=== PATIENT | male | born 1990 | race Caucasian/White ===

== ENCOUNTER 2018-07-13 01:44 | Inpatient (IN) | payer BC ==
[2018-07-13] VITALS (8 sets, daily range): BP systolic 119–152; BP diastolic 81–100
[~2018-07-13] VITALS: Ht 185.4 cm; Wt 80.3 kg
[~2018-07-13 01:44] MED LIST: ALPRAZOLAM0.25 MG ORAL
--- NOTE | 2018-07-13 01:50 | NUR ---
ED Nurse Note: patient bibdawson RA 857 c/o of nonstop vomiting for 4 days, states that he has hx of Hep a, states a 10/10 pain, states that he has been vomiting non stop every 5 minutes, has taken 12mg of zofran today. pt states that his vomit comes out either what food he ate or a clear color. when asked to provide urine, pt states that he can not. cap refill is less than 3 sec, pt pulse strong. pt is alert and oriented times 4. skin does not tent on assesment.
[2018-07-13] MEDS ORDERED: LORazepam Inj 2mg/ml 1ml IV ONE (02:00)
--- NOTE | 2018-07-13 02:06 | Emergency Room Report ---
History of Present Illness General Chief Complaint: Vomiting Source: Patient Present Illness HPI Is a 28-year-old male with a history of anxiety for which she takes next. He also said he had a history of hepatitis a diagnosed 2 months ago. He presents with chief complaint of intractable vomiting. Onset for last 4 days. Unable to keep anything down. Vomiting is nonbloody nonbilious. No diarrhea. Abdominal cramps of the vomiting. [place] dehydrated. Unable to take his medication because of the vomiting. Allergies: Coded Allergies: No Known Allergies (Unverified , 07/13/18) Patient History Past Medical History: see triage record, old chart reviewed, psych hx Past Surgical History: none Pertinent Family History: none Social History: Denies: smoking Immunizations: other Reviewed Nursing Documentation: PMH: Agreed; PSxH: Agreed Review of Systems Eye: Denies: eye pain, blurred vision ENT: Denies: ear pain, nose congestion, throat swelling Respiratory: Denies: cough, shortness of breath Cardiovascular: Denies: chest pain, palpitations Gastrointestinal: Reports: abdominal pain, nausea, vomiting; Denies: diarrhea Musculoskeletal: Denies: back pain, joint pain Skin: Denies: rash Neurological: Denies: headache, numbness Endocrine: Denies: increased thirst, increased urine Hematologic/Lymphatic: Denies: easy bruising All Other Systems: negative except mentioned in HPI Physical Exam Vital Signs Date Time Temp Pulse Resp B/P (MAP) Pulse Ox O2 Delivery O2 Flow Rate FiO2 07/13/18 01:39 110 124/85 vitals with tachycardia Sp02 EP Interpretation: reviewed, normal General Appearance: well appearing, no apparent distress, alert Head: normocephalic, atraumatic Eyes: bilateral eye PERRL, bilateral eye EOMI ENT: hearing grossly normal, dry mucus membranes Neck: full range of motion, supple, no meningismus Respiratory: chest non-tender, lungs clear, normal breath sounds Cardiovascular #1: regular rate, rhythm, no murmur, tachycardia Gastrointestinal: normal bowel sounds, non tender, no mass, no organomegaly, no bruit, non-distended Musculoskeletal: back normal, gait/station normal, normal range of motion Psychiatric: anxious Skin: warm/dry Medical Decision Making Diagnostic Impression: Primary Impression: Intractable vomiting Qualified Codes: R11.2 - Nausea with vomiting, unspecified Additional Impressions: Intractable abdominal pain Hyperbilirubinemia ARF (acute renal failure) Qualified Codes: N17.9 - Acute kidney failure, unspecified Dehydration Leukocytosis Qualified Codes: D72.829 - Elevated white blood cell count, unspecified ER Course Patient presents with intractable abdominal pain and vomiting. He is pretty dehydrated with hemoconcentration with high hemoglobin. BUN/creatinine also high. White count is elevated. This may be secondary to infection but most likely secondary to acute stress response of vomiting and pain. CT scan showed distal appendix measuring up to 8 mm in caliber. There is no onofre-appendiceal inflammatory changes. This is unlikely appendicitis. I a order Zosyn. Patient still has nausea but no vomiting. Abdominal pain is better controlled. Will admit for further workup. I discussed the case with Dr. Jones for admission and Dr. Vaughan, surgeon, for consult. Lab Results Impression labs with leukocytosis and elevated kidney function CT/MRI/US Diagnostic Results CT/MRI/US Diagnostic Results : Imaging Test Ordered: CT abdomen and pelvis Impression Read by radiologist. Distal appendix measuring up to 8 mm in caliber. No pain in the appendiceal inflammatory changes Last Vital Signs Date Time Temp Pulse Resp B/P (MAP) Pulse Ox O2 Delivery O2 Flow Rate FiO2 07/13/18 01:39 110 124/85 Status: improved Disposition: ADMITTED INPATIENT Condition: Serious Joseph Gan MD Jul 13, 2018 02:06
--- NOTE | 2018-07-13 02:17 | NUR ---
ED Nurse Note: Drawer was accidentally closed when pyxis offered ZOFRAN. medication was not taken out. RN had to override to pull ordered ZOFRAN. only 1 medication was pulled during this event.
[2018-07-13 02:21] LABS: HEMATOCRIT 56.5 % (42.0-52.0); MEAN CORPUSCULAR VOLUME 87 FL (80-99); PLATELET COUNT 335 K/UL (150-450); RED BLOOD COUNT 6.52 M/UL (4.70-6.10); WHITE BLOOD COUNT 20.3 K/UL (4.8-10.8)
[2018-07-13 02:28] LABS: HEMOGLOBIN 19.8 G/DL (14.2-18.0)
[2018-07-13 02:32] LABS: ANION GAP 16 mmol/L (5-15); BLOOD UREA NITROGEN 56 mg/dL (7-18); CARBON DIOXIDE 25 MMOL/L (21-32); CHLORIDE 99 MMOL/L (98-107); POTASSIUM 3.6 MMOL/L (3.5-5.1); SODIUM 140 MMOL/L (136-145)
[2018-07-13 02:43] LABS: ALANINE AMINOTRANSFERASE 25 U/L (12-78); ALBUMIN/GLOBULIN RATIO 1.3 (1.0-2.7); ALKALINE PHOSPHATASE 111 U/L (46-116); ASPARTATE AMINO TRANSFERASE 27 U/L (15-37); BILIRUBIN,TOTAL 2.6 MG/DL (0.2-1.0)
[2018-07-13] MEDS ORDERED: Promethazine HCl 25 MG in NS 55 ML IVPB ONE (02:45)
[2018-07-13 02:50] LABS: BILIRUBIN,DIRECT 0.4 MG/DL (0.0-0.3)
[2018-07-13 03:28] LABS: APPEARANCE,URINE CLEAR; BILIRUBIN, URINE NEGATIVE (NEGATIVE); GLUCOSE, URINE (UA) NEGATIVE (NEGATIVE); KETONES,URINE NEGATIVE (NEGATIVE); LEUKOCYTE ESTERASE ,URINE NEGATIVE (NEGATIVE); NITRITE,URINE NEGATIVE (NEGATIVE); PH,URINE 5 (4.5-8.0); PROTEIN,URINE 2+ (NEGATIVE); UROBILINOGEN,URINE NORMAL MG/DL (0.0-1.0)
[2018-07-13 03:30] LABS: COLOR,URINE YELLOW
--- NOTE | 2018-07-13 04:09 | Diagnostic Imaging Report ---
ADDENDUM - Added by Jonathan Ontiveros M.D. on 07/13/2018 4:09 AM (-08:00) EXAM: CT Abdomen and Pelvis Without Intravenous Contrast CLINICAL HISTORY: ABD PAIN TECHNIQUE: Axial computed tomography images of the abdomen and pelvis without intravenous contrast. CTDI is 11.42 mGy and DLP is 595.21 mGy-cm. One or more of the following dose reduction techniques were used: automated exposure control, adjustment of the mA and/or kV according to patient size, use of iterative reconstruction technique. COMPARISON: No relevant prior studies available. FINDINGS: Distal appendix measures up to about 8 mm in caliber. Lumen of the appendix is opacified. Findings may represent appendicitis in the appropriate clinical context. Portions of distal appendix seen images 54 through 50 series 6. No urinary tract calculi or hydronephrosis. Areas of mild hepatic steatosis. No evidence for acute pancreatitis or bowel obstruction. Hiatal hernia. Lucency with linear configuration at the ligula. Could be artifact from overlying monitor lead. Correlate for any left lung base symptoms. No infiltrate seen at lung bases. IMPRESSION: Distal appendix measures up to about 8 mm in caliber. Lumen of the appendix is opacified. No significant periappendiceal inflammatory changes appreciated. Findings may represent appendicitis in the appropriate clinical context. Clinical correlation needed. Lucency with linear configuration at the ligula. Could be artifact from overlying monitor lead. Correlate for any left lung base symptoms. Incidental findings, as discussed above. [employer] 07/13/18 04:22 Verify Receipt Verified receipt with Joseph Quiroga MD on 07/13 04:22 (-08:00) 07/13/18 04:22 Verify Receipt Verified receipt with Joseph Quiroga MD on 07/13 04:22 (-08:00)
[2018-07-13] MEDS ORDERED: Piperacillin/Tazobactam 3.375 GM in NS 110 ML IVPB ONE (04:30)
--- NOTE | 2018-07-13 04:44 | NUR ---
NURSE NOTES: Patient received FREDERICK Stratton R.N. a28 y.o male with history of anxiety . he also said he had ahistory of hepatis A diagnose 2 mos ago . patient present c/o intractable vomiting . onset for last 4 days . unable to keeP anything down . vomiting is non bloody non bilious. no diarrhea. abdominal cramps of the vomiting . fell dehydrated . unable to take his medication because of the vomiting. patient vss, afebrile . skin is intact .personal belongings with patient . call light within reach bed in low position at all times.will continue to monitor patient Addendum: 07/14/18 at 1836 by JOSE ALBERTO DRAPER LVN Patient received from Toan Wade
--- NOTE | 2018-07-13 04:44 | NUR ---
ED Nurse Note: Report given to Natividad MADERA, in 3E. pt status, vital signs, labs and condition reported to MD and receving RN prior to transfer. pt transfered with all belongings. pt vital signs are stable prior to transfer. no skin issues noted in ER. pt is alert and oriented times 4.
--- NOTE | 2018-07-13 05:27 | NUR ---
NURSE NOTES:Call mansoor Calzada for admission orders . still awaiting to call back. Addendum: 07/14/18 at 1834 by JOSE ALBERTO DRAPER LVN NISHANT Escobar KIRK with new orders . AND Family notified r patient locations Room 312 bed i. Addendum: 07/15/18 at 0219 by JOSE ALBERTO DRAPER FRENCH PROFESSOR HgB 19.8 HCT.56.H AND SOPHIE Charge nurse notified and aware .will continue to monitor patient
[2018-07-13] MEDS ORDERED: D5NS 1,000 ML IV SCH (06:15)
[2018-07-13] MEDS ORDERED: Morphine Sulfate 2mg/ml Inj IVP PRN (06:15)
--- NOTE | 2018-07-13 07:35 | NUR ---
HAND-OFF: Report given to Dinorah Avila
--- NOTE | 2018-07-13 07:35 | NUR ---
NURSE NOTES: WALKING ROUNDS DONE WITH OUTGOING RN. PATIENT AWAKE IN BED. C/O ABD PAIN AND HAS NAUSEA. ANTI-EMETIC GIVEN BY NIGHT CN THIS A.M. DISCUSSED PLAN OF CARE FOR THE DAY. AWAITING MD TO SEE PATIENT. CALL LIGHT WITHIN REACH. WILL CONTINUE TO MONITOR.
[2018-07-13] MEDS: Morphine Sulfate 4mg/ml Inj (IV/IM USE ONLY) IVP PRN ×3 (08:53→17:54)
[2018-07-13] MEDS: ALPRAZolam 0.25mg tab ORAL SCH ×3 (09:00→18:00)
--- NOTE | 2018-07-13 10:45 | History and Physical Report ---
DATE OF ADMISSION: 07/13/2018 CHIEF COMPLAINT: Intractable nausea, vomiting, and diarrhea. HISTORY OF PRESENT ILLNESS: The patient is a 27-year-old male. He has a prior history of hepatitis A, apparently had an episode of severe nausea, vomiting, and diarrhea approximately eight days ago. It improved, but over the last four to five days he has had intractable nausea and vomiting. According to the patient, he vomits nearly every 15 to 30 minutes. He has been unable to tolerate any POs diarrhea. He denies any ill contacts. He has had no fevers or chills. He admits vague abdominal pain. On evaluation in the emergency room, the patient had a CT scan of the abdomen, which was relatively unremarkable. His labs were significant for white count of 20,000 and hemoglobin of 20. Sodium 140, creatinine of 2, and bilirubin of 2.6. The patient has been started on IV hydration and is now admitted for further evaluation and care. PAST MEDICAL HISTORY: As above. PAST SURGICAL HISTORY: None. CURRENT MEDICATIONS: Include Xanax and Remeron. SOCIAL HISTORY: Negative for alcohol. The patient occasional smokes marijuana. No other illicit drugs. FAMILY HISTORY: None. REVIEW OF SYSTEMS: GENERAL: No fever or chills. HEENT: No headaches or visual changes. CARDIOPULMONARY: No chest pain or shortness of breath. GASTROINTESTINAL: Positive nausea and vomiting. Positive diarrhea. Some blood in his vomitus. GENITOURINARY: No urgency or frequency. MUSCULOSKELETAL: No joint pain or swelling. NEUROLOGIC: No evidence of seizures. PHYSICAL EXAMINATION: VITAL SIGNS: Temperature is 98.7 degrees, pulse 86, respirations 20, and blood pressure 150/88. GENERAL: The patient is a well-developed male, in no apparent distress. HEART: Regular rate and rhythm. LUNGS: Clear. ABDOMEN: Soft. Mildly tender throughout. There is no rebound or guarding. EXTREMITIES: No clubbing, cyanosis, or edema. LABORATORY AND IMAGING DATA: UA was clear. White count 20, hemoglobin 20, hematocrit 56, and platelets of 335,000. Sodium 140, potassium 3.6, BUN 36, and creatinine was 2. Total bilirubin 2.6. Lipase is 184. CT scan of the abdomen showed distal appendix measuring 8 mm in caliber, lumen is opacified. No periappendiceal inflammatory changes. Findings may represent appendicitis in the appropriate clinical contacts. ASSESSMENT: This is a pleasant male, admitted with intractable nausea, vomiting, and diarrhea, suspect secondary to gastroenteritis. He has acute renal failure likely due to dehydration and elevated hemoglobin likely due to contraction and dehydration. PLAN: Aggressive fluid resuscitation. Antiemetics. Empiric antibiotic therapy to cover for appendicitis. GI, Infectious Disease, and Surgery consultations to be obtained. We will review CT scan results. Vinicius Jones M.D. DR: FARIHA JOB#: [id number] CC:
--- NOTE | 2018-07-13 11:30 | Consultation ---
DATE OF CONSULTATION: 07/13/2018 INFECTIOUS DISEASE CONSULTATION CONSULTING PHYSICIAN: Rosalino Garcia M.D. REFERRING PHYSICIAN: Vinicius Jones M.D. REASON FOR CONSULTATION: Gastroenteritis. HISTORY OF PRESENT ILLNESS: This is a 28-year-old gentleman with history of anxiety and hepatitis A two months ago, who came in with vomiting since the last four days and was unable to keep anything down. He also has diarrhea along with abdominal cramps. He also complains of fever and chills. He does not recall eating anything bad, but he went on vacation to [place] [employer]. An Infectious Disease consultation has been obtained for antibiotics. PAST MEDICAL HISTORY: 1. History of hepatitis A, diagnosed two months ago. 2. History of anxiety. SOCIAL HISTORY: He does not smoke, drink, or use drugs. FAMILY HISTORY: Noncontributory. REVIEW OF SYSTEMS: RESPIRATORY: He had fever and chills. He has a cough. He has shortness of breath. No chest pain. CARDIAC: No chest pain. No palpitations. No dizziness. No syncope. GASTROINTESTINAL: He does have nausea and vomiting. He complains of abdominal pain. He has diarrhea. MEDICATIONS: As an inpatient, he is on Zosyn, Xanax, Zofran, and morphine. ALLERGIES: No known drug allergies. PHYSICAL EXAMINATION: VITAL SIGNS: Temperature 98.1, T-max of 98.7, pulse 86, respiratory rate 20, and blood pressure 151/99. O2 saturation of 100%. HEENT: Pupils are equally reactive to light and accommodation. Mouth appears clean without thrush. NECK: Supple. No adenopathy. No JVD. CARDIOVASCULAR: Regular rate and rhythm. No murmurs. LUNGS: Clear to auscultation bilaterally. No crackles. No wheezes. ABDOMEN: Soft and nontender. No organomegaly. EXTREMITIES: No cyanosis. No clubbing. No edema. LABORATORY AND DIAGNOSTIC DATA: White count of 20.3, hemoglobin 19.8, hematocrit 56.5, MCV 87, and platelet count 335,000. Sodium 140, potassium 3.6, chloride 99, bicarb 25, BUN 56, and creatinine 2. Glucose 148. Calcium 10. Total bilirubin 2.6, direct bilirubin 0.4. AST 27, ALT 25, and alkaline phosphatase 111. Total protein 8.9, albumin 5. Lipase of 184. UA showing [address] abdomen and pelvis showing distal appendix about 8 mm in caliber opacified. No significant periappendiceal inflammatory changes. Findings may represent appendicitis. ASSESSMENT: This is a 28-year-old gentleman with history of anxiety and hepatitis A recently, who comes in with: 1. Nausea, vomiting, abdominal pain and diarrhea, would be concerned regarding appendicitis as a possibility. 2. Leukocytosis. 3. Renal failure. 4. We would also like to rule out gastroenteritis as a possibility. PLAN: 1. Continue Zosyn. 2. We will order stool cultures and stool for C. difficile colitis. 3. We would suggest a surgical evaluation. 4. We will follow up the patient clinically. I would like to thank Dr. Jones for this consultation. Rosalino Garcia M.D. DR: JENNY JOB#: [id number] CC:
--- NOTE | 2018-07-13 13:08 | Consultation ---
History of Present Illness General Date patient seen: Jul 13, 2018 Chief Complaint: Vomiting Present Illness HPI 28 year old male with history of anxiety and prior left open inguinal hernia repair with mesh presented with 4 days of abdominal discomfort, nausea, emesis. [place] and for the past 4 days has been feeling unwell. generalized mid and epigastric abdominal pain that is 5/10 cramping. intractable nausea and emesis. presented to ED severely dehydrated. CT noted. surgery called to evaluate. patient seen, chart reviewed, patient examined. Allergies: Coded Allergies: No Known Allergies (Unverified , 07/13/18) Medication History Scheduled Alprazolam* (Xanax*), 0.25 MG ORAL TID, (Reported) Patient History History Provided By: Patient, Medical Record, PMD Healthcare decision maker Resuscitation status Full Code Advanced Directive on File Past Medical/Surgical History Past Medical/Surgical History: (1) Acute renal failure (2) ARF (acute renal failure) (3) Hyperbilirubinemia (4) Intractable abdominal pain (5) Dehydration (6) Leukocytosis (7) Intractable vomiting Review of Systems All Other Systems: negative except mentioned in HPI Physical Exam General Appearance: mild distress Lines, tubes and drains: peripheral HEENT: atraumatic Neck: normal inspection Respiratory/Chest: normal breath sounds, no respiratory distress, no accessory muscle use Cardiovascular/Chest: normal peripheral pulses, normal rate, regular rhythm Abdomen: soft, distended, tender - no rebound or guarding. discomfort with palpation of epigastric region Extremities: normal inspection Skin Exam: normal pigmentation Neurologic: alert, oriented x 3 Last 24 Hour Vital Signs Date Time Temp Pulse Resp B/P (MAP) Pulse Ox O2 Delivery O2 Flow Rate FiO2 07/13/18 11:56 98.2 71 20 150/96 (114) 99 07/13/18 09:23 98.1 07/13/18 09:00 Room Air 07/13/18 08:00 98.1 86 20 151/99 (116) 100 07/13/18 05:12 Room Air 07/13/18 04:44 98.7 86 20 150/88 (108) 97 07/13/18 04:44 98.7 86 20 150/88 (108) 97 07/13/18 04:42 98.2 79 15 122/81 99 Room Air 99 07/13/18 04:41 98.2 79 15 122/81 99 Room Air 07/13/18 03:39 98.2 81 15 119/83 99 Room Air 07/13/18 01:50 98.2 100 15 124/85 99 Room Air 07/13/18 01:50 100 16 Room Air 99 07/13/18 01:39 110 124/85 Intake and Output 07/12/18 07/13/18 18:59 06:59 Intake Total 2000 ml Balance 2000 ml Intake IV Total 2000 ml # Voids 1 Laboratory Tests Test 07/13/18 02:06 07/13/18 03:20 White Blood Count 20.3 K/UL (4.8-10.8) H Red Blood Count 6.52 M/UL (4.70-6.10) H Hemoglobin 19.8 G/DL (14.2-18.0) *H Hematocrit 56.5 % (42.0-52.0) H Mean Corpuscular Volume 87 FL (80-99) Mean Corpuscular Hemoglobin 30.3 PG (27.0-31.0) Mean Corpuscular Hemoglobin Concent 35.0 G/DL (32.0-36.0) Red Cell Distribution Width 11.0 % (11.6-14.8) L Platelet Count 335 K/UL (150-450) Mean Platelet Volume 6.5 FL (6.5-10.1) Neutrophils (%) (Auto) % (45.0-75.0) Lymphocytes (%) (Auto) % (20.0-45.0) Monocytes (%) (Auto) % (1.0-10.0) Eosinophils (%) (Auto) % (0.0-3.0) Basophils (%) (Auto) % (0.0-2.0) Sodium Level 140 MMOL/L (136-145) Potassium Level 3.6 MMOL/L (3.5-5.1) Chloride Level 99 MMOL/L (98-107) Carbon Dioxide Level 25 MMOL/L (21-32) Anion Gap 16 mmol/L (5-15) H Blood Urea Nitrogen 56 mg/dL (7-18) H Creatinine 2.0 MG/DL (0.55-1.30) H Estimat Glomerular Filtration Rate 39.7 mL/min (>60) Glucose Level 148 MG/DL (74-106) H Calcium Level 10.0 MG/DL (8.5-10.1) Total Bilirubin 2.6 MG/DL (0.2-1.0) H Direct Bilirubin 0.4 MG/DL (0.0-0.3) H Aspartate Amino Transf (AST/SGOT) 27 U/L (15-37) Alanine Aminotransferase (ALT/SGPT) 25 U/L (12-78) Alkaline Phosphatase 111 U/L (46-116) Total Protein 8.9 G/DL (6.4-8.2) H Albumin 5.0 G/DL (3.4-5.0) Globulin 3.9 g/dL Albumin/Globulin Ratio 1.3 (1.0-2.7) Lipase 184 U/L (73-393) Urine Color Yellow Urine Appearance Clear Urine pH 5 (4.5-8.0) Urine Specific [place] 1.020 (1.005-1.035) Urine Protein 2+ (NEGATIVE) H Urine Glucose (UA) Negative (NEGATIVE) Urine Ketones Negative (NEGATIVE) Urine Blood 1+ (NEGATIVE) H Urine Nitrite Negative (NEGATIVE) Urine Bilirubin Negative (NEGATIVE) Urine Urobilinogen Normal MG/DL (0.0-1.0) Urine Leukocyte Esterase Negative (NEGATIVE) Urine RBC 0-2 /HPF (0 - 0) H Urine WBC 0 /HPF (0 - 0) Urine Squamous Epithelial Cells None /LPF (NONE/OCC) Urine Bacteria None /HPF (NONE) Urine Opiates Screen Negative (NEGATIVE) Urine Barbiturates Screen Negative (NEGATIVE) Phencyclidine (PCP) Screen Negative (NEGATIVE) Urine Amphetamines Screen Negative (NEGATIVE) Urine Benzodiazepines Screen Positive (NEGATIVE) H Urine Cocaine Screen Negative (NEGATIVE) Urine Marijuana (THC) Screen Positive (NEGATIVE) H Height (Feet): 6 Height (Inches): 1.00 Weight (Pounds): 180 Medications Current Medications Medications (Trade) Dose Ordered Sig/Malika Route PRN Reason Start Time Stop Time Status Last Admin Dose Admin Alprazolam (Xanax) 0.25 mg THREE TIMES A DAY ORAL 07/13/18 09:00 07/20/18 08:59 07/13/18 09:16 Dextrose/Sodium Chloride 1,000 ml @ 100 mls/hr Q10H IV 07/13/18 06:15 08/12/18 06:14 07/13/18 06:55 Morphine Sulfate (Morphine Sulfate) 1 mg Q4H PRN IVP For Pain 07/13/18 08:45 07/20/18 08:44 07/13/18 08:53 Ondansetron HCl (Zofran) 4 mg Q4H PRN IVP Nausea & Vomiting 07/13/18 08:55 08/12/18 08:54 07/13/18 11:03 Piperacillin Sod/ Tazobactam Sod 3.375 gm/Sodium Chloride 110 ml @ 27.5 mls/hr EVERY 8 HOURS IVPB 07/13/18 14:00 07/18/18 13:59 Assessment/Plan Problem List: (1) Intractable abdominal pain ICD Codes: R10.9 - Unspecified abdominal pain SNOMED: 49421496, [id number] (2) Intractable vomiting Assessment & Plan: very dehydrated constant emesis CT noted. exam as above unlikely appendicitis etiology unknown -npo -iv fluids -iv abx -am labs if does not improve with hydration may warrant diagnostic laparoscopy will follow with recs thank you ICD Codes: R11.10 - Vomiting, unspecified SNOMED: [id number] Qualifiers: Qualified Codes: R11.2 - Nausea with vomiting, unspecified Castro Vaughan Jul 13, 2018 13:08
[2018-07-13] MEDS ORDERED: Sodium Chloride 500ML 500 ML IV ONE (13:45)
[2018-07-13] MEDS ORDERED: Promethazine HCl 50 MG in NS 110 ML IVPB SCH (14:00)
[2018-07-13] MEDS: D5NS 1,000 ML IV SCH ×2 (14:12→18:59)
[2018-07-13] MEDS: Piperacillin/Tazobactam 3.375 GM in NS 110 ML IVPB SCH ×2 (14:17→22:02)
[2018-07-13] MEDS ORDERED: Metoclopramide 10mg/2ml Inj IVP SCH (14:30)
[2018-07-13] MEDS: HYDROmorphone 1mg/ml Carpuject IVP PRN ×3 (14:37→22:58)
[2018-07-13] MEDS ORDERED: Tubing IV Secondary IV ONE (17:48)
[2018-07-13] MEDS: Metoclopramide 10mg/2ml Inj IVP SCH (17:53)
--- NOTE | 2018-07-13 21:30 | NUR ---
NURSE NOTES: PATIENT FELL ASLEEP A FEW TIMES THROUGHOUT THE DAY BUT AWAKENED WITH BURNING ABDOMINAL PAIN. STILL REQUIRING PAIN MEDS AND ANTIEMTICS AT PRN SCHEDULED TIMES. VSS. CALL LIGHT WITHIN REACH.
[2018-07-13] MEDS: LORazepam Inj 2mg/ml 1ml IV PRN (22:02)
[2018-07-14] VITALS: BP 158/97
[2018-07-14] MEDS: Metoclopramide 10mg/2ml Inj IVP SCH ×5 (00:04→23:38)
[2018-07-14] MEDS: LORazepam Inj 2mg/ml 1ml IV PRN ×6 (02:15→23:50)
[2018-07-14] MEDS: HYDROmorphone 1mg/ml Carpuject IVP PRN (02:59)
--- NOTE | 2018-07-14 03:49 | NUR ---
HAND-OFF: Report given to LORI RAMIREZ RN..
[2018-07-14 04:10] VITALS: BP 157/91
--- NOTE | 2018-07-14 04:44 | NUR ---
NURSE NOTES: Patient care of nausea no vomiting noted or stated, medicated per MD orders and comfort measures provided. Call light within reach.
--- NOTE | 2018-07-14 04:53 | NUR ---
NURSE NOTES: Patient aware of need to collect stool specimen per MD orders and agrees to inform RN if any occurs, hat placed in toilet and specimen cup at bedside.
[2018-07-14] MEDS: Piperacillin/Tazobactam 3.375 GM in NS 110 ML IVPB SCH ×3 (06:07→21:50)
--- NOTE | 2018-07-14 07:04 | NUR ---
HAND-OFF: Report given to Hema MADERA.
--- NOTE | 2018-07-14 07:25 | NUR ---
NURSE NOTES: Report received from outgoing RN, rounds made, patient alert, oriented x4, calm. Denies pain, no N/V, IV infusing to right antecubital as ordered. Ice chips provided, voiding in bathroom, call light in reach, bed in lowest position, will continue to monitor.
[2018-07-14 07:48] LABS: BASOPHILS % (AUTO) 0.9 % (0.0-2.0); HEMOGLOBIN 15.8 G/DL (14.2-18.0); LYMPHOCYTES % (AUTO) 13.1 % (20.0-45.0); MEAN CORPUSCULAR VOLUME 89 FL (80-99); MONOCYTES % (AUTO) 9.4 % (1.0-10.0); NEUTROPHILS % (AUTO) 76.6 % (45.0-75.0); PLATELET COUNT 244 K/UL (150-450); RED BLOOD COUNT 5.17 M/UL (4.70-6.10); RED CELL DISTRIBUTION WIDTH 11.5 % (11.6-14.8); WHITE BLOOD COUNT 11.1 K/UL (4.8-10.8)
--- NOTE | 2018-07-14 07:59 | General Progress Note ---
Assessment/Plan Problem List: (1) ARF (acute renal failure) ICD Codes: N17.9 - Acute kidney failure, unspecified SNOMED: 54553936 Qualifiers: Qualified Codes: N17.9 - Acute kidney failure, unspecified (2) Intractable abdominal pain ICD Codes: R10.9 - Unspecified abdominal pain SNOMED: 39800349, 811157211 (3) Dehydration ICD Codes: E86.0 - Dehydration SNOMED: 13498685, 688316962 (4) Intractable vomiting ICD Codes: R11.10 - Vomiting, unspecified SNOMED: 861147649 Qualifiers: Qualified Codes: R11.2 - Nausea with vomiting, unspecified Status: stable, progressing Assessment/Plan cont current rx iv pain x 1 only(cures reviewed- no narcotics prescribed) ?cyclic vomiting follow labs trial clear liquid diet Subjective ROS Limited/Unobtainable: No Constitutional: Reports: weakness HEENT: Reports: no symptoms Cardiovascular: Reports: no symptoms Respiratory: Reports: no symptoms Gastrointestinal/Abdominal: Reports: nausea Genitourinary: Reports: no symptoms Neurologic/Psychiatric: Reports: no symptoms Endocrine: Reports: no symptoms Hematologic/Lymphatic: Reports: no symptoms Allergies: Coded Allergies: No Known Allergies (Unverified , 07/13/18) All Systems: reviewed and negative except above Subjective nausea but no vomiting. c/o pain. " can i have some dilaudid?" Objective Last 24 Hour Vital Signs Date Time Temp Pulse Resp B/P (MAP) Pulse Ox O2 Delivery O2 Flow Rate FiO2 07/14/18 04:10 98.3 85 18 157/91 (113) 97 07/14/18 03:29 98.7 07/14/18 00:00 98.7 63 18 158/97 (117) 96 07/13/18 21:00 Room Air 07/13/18 19:57 98.9 66 18 145/99 (114) 95 07/13/18 19:25 98.9 07/13/18 18:24 98.3 07/13/18 15:46 98.3 94 18 152/100 (117) 100 07/13/18 11:56 98.2 71 20 150/96 (114) 99 07/13/18 09:00 Room Air 07/13/18 08:00 98.1 86 20 151/99 (116) 100 Intake and Output 07/13/18 07/14/18 19:00 07:00 Intake Total 1510.0 ml 360.0 ml Output Total 205 ml Balance 1305.0 ml 360.0 ml Intake IV Total 1510.0 ml 360.0 ml Output Emesis 205 ml # Voids 2 2 Laboratory Tests 07/13/18 17:05: Hepatitis A IgM Antibody [Pending], Hepatitis A Antibody Total [Pending], Hepatitis B Surface Antigen [Pending], Hepatitis B Core IgM Antibody [Pending], Hepatitis C Antibody [Pending] 07/14/18 07:30: White Blood Count 11.1H, Red Blood Count 5.17, Hemoglobin 15.8, Hematocrit 46.0 , Mean Corpuscular Volume 89, Mean Corpuscular Hemoglobin 30.5, Mean Corpuscular Hemoglobin Concent 34.3, Red Cell Distribution Width 11.5L, Platelet Count 244, Mean Platelet Volume 6.5, Neutrophils (%) (Auto) 76.6H, Lymphocytes (%) (Auto) 13.1L, Monocytes (%) (Auto) 9.4, Eosinophils (%) (Auto) 0.0, Basophils (%) (Auto) 0.9, Erythrocyte Sedimentation Rate [Pending], Prothrombin Time [Pending], Prothromb Time International Ratio [Pending], Activated Partial Thromboplast Time [Pending], Sodium Level [Pending], Potassium Level [Pending], Chloride Level [Pending], Carbon Dioxide Level [ Pending], Blood Urea Nitrogen [Pending], Creatinine [Pending], Estimat Glomerular Filtration Rate [Pending], Glucose Level [Pending], Lactic Acid Level [Pending], Calcium Level [Pending], Total Bilirubin [Pending], Aspartate Amino Transf (AST/SGOT) [Pending], Alanine Aminotransferase (ALT/SGPT) [Pending] , Alkaline Phosphatase [Pending], C-Reactive Protein, Quantitative [Pending], Total Protein [Pending], Albumin [Pending], Globulin [Pending], Amylase Level [ Pending], Lipase [Pending] Height (Feet): 6 Height (Inches): 1.00 Weight (Pounds): 177 General Appearance: WD/WN, no apparent distress Neck: supple Cardiovascular: regular rhythm Respiratory/Chest: chest wall non-tender, lungs clear, normal breath sounds Abdomen: normal bowel sounds, non tender, soft, no organomegaly Edema: no edema noted Arm (L), no edema noted Arm (R), no edema noted Leg (L), no edema noted Leg (R), no edema noted Pedal (L), no edema noted Pedal (R), no edema noted Generalized Vinicius Jones MD Jul 14, 2018 07:59
[2018-07-14 08:00] VITALS: BP 141/97
[2018-07-14] MEDS ORDERED: Hydromorphone 0.5mg/0.5ml inj IVP PRN (08:11)
[2018-07-14 08:12] LABS: ALANINE AMINOTRANSFERASE 38 U/L (12-78); ALBUMIN 3.8 G/DL (3.4-5.0); ALBUMIN/GLOBULIN RATIO 1.2 (1.0-2.7); ALKALINE PHOSPHATASE 84 U/L (46-116); AMYLASE 54 U/L (25-115); ANION GAP 8 mmol/L (5-15); ASPARTATE AMINO TRANSFERASE 34 U/L (15-37); BILIRUBIN,TOTAL 2.4 MG/DL (0.2-1.0); BLOOD UREA NITROGEN 31 mg/dL (7-18); CALCIUM 8.7 MG/DL (8.5-10.1); CARBON DIOXIDE 26 MMOL/L (21-32); CHLORIDE 112 MMOL/L (98-107); CREATININE 1.4 MG/DL (0.55-1.30); POTASSIUM 3.8 MMOL/L (3.5-5.1); SODIUM 146 MMOL/L (136-145)
[2018-07-14 08:13] LABS: BILIRUBIN,DIRECT 0.5 MG/DL (0.0-0.3)
[2018-07-14] MEDS ORDERED: HYDROmorphone 1mg/ml Carpuject IVP PRN (08:15)
[2018-07-14 08:36] LABS: INR 1.1 (0.9-1.1)
[2018-07-14] MEDS: ALPRAZolam 0.25mg tab ORAL SCH ×3 (08:46→18:06)
--- NOTE | 2018-07-14 09:38 | General Surgery Progress Note ---
General Surgery-Progress Note Subjective Additional Comments seems improved. now with intermittent cyclic vomiting and not as constant as prior. labs improved. abd exam benign. states morphine not working. asking for dilaudid by name. Objective Last 24 Hour Vital Signs Date Time Temp Pulse Resp B/P (MAP) Pulse Ox O2 Delivery O2 Flow Rate FiO2 07/14/18 04:10 98.3 85 18 157/91 (113) 97 07/14/18 03:29 98.7 07/14/18 00:00 98.7 63 18 158/97 (117) 96 07/13/18 21:00 Room Air 07/13/18 19:57 98.9 66 18 145/99 (114) 95 07/13/18 19:25 98.9 07/13/18 18:24 98.3 07/13/18 15:46 98.3 94 18 152/100 (117) 100 07/13/18 11:56 98.2 71 20 150/96 (114) 99 I&O Intake and Output 07/13/18 07/14/18 19:00 07:00 Intake Total 1510.0 ml 360.0 ml Output Total 205 ml Balance 1305.0 ml 360.0 ml Intake IV Total 1510.0 ml 360.0 ml Output Emesis 205 ml # Voids 2 2 Cardiovascular: RSR Respiratory: clear Abdomen: soft, flat, non-tender, present bowel sounds Extremities: no cyanosis Laboratory Tests Test 07/13/18 17:05 07/14/18 07:30 Hepatitis A IgM Antibody Pending Hepatitis A Antibody Total Pending Hepatitis B Surface Antigen Pending Hepatitis B Core IgM Antibody Pending Hepatitis C Antibody Pending White Blood Count 11.1 K/UL (4.8-10.8) H Red Blood Count 5.17 M/UL (4.70-6.10) Hemoglobin 15.8 G/DL (14.2-18.0) Hematocrit 46.0 % (42.0-52.0) Mean Corpuscular Volume 89 FL (80-99) Mean Corpuscular Hemoglobin 30.5 PG (27.0-31.0) Mean Corpuscular Hemoglobin Concent 34.3 G/DL (32.0-36.0) Red Cell Distribution Width 11.5 % (11.6-14.8) L Platelet Count 244 K/UL (150-450) Mean Platelet Volume 6.5 FL (6.5-10.1) Neutrophils (%) (Auto) 76.6 % (45.0-75.0) H Lymphocytes (%) (Auto) 13.1 % (20.0-45.0) L Monocytes (%) (Auto) 9.4 % (1.0-10.0) Eosinophils (%) (Auto) 0.0 % (0.0-3.0) Basophils (%) (Auto) 0.9 % (0.0-2.0) Erythrocyte Sedimentation Rate 1 MM/HR (0-15) Prothrombin Time 11.3 SEC (9.30-11.50) Prothromb Time International Ratio 1.1 (0.9-1.1) Activated Partial Thromboplast Time 29 SEC (23-33) Sodium Level 146 MMOL/L (136-145) H Potassium Level 3.8 MMOL/L (3.5-5.1) Chloride Level 112 MMOL/L (98-107) H Carbon Dioxide Level 26 MMOL/L (21-32) Anion Gap 8 mmol/L (5-15) Blood Urea Nitrogen 31 mg/dL (7-18) H Creatinine 1.4 MG/DL (0.55-1.30) H Estimat Glomerular Filtration Rate 59.9 mL/min (>60) Glucose Level 129 MG/DL (74-106) H Lactic Acid Level 1.40 mmol/L (0.4-2.0) Calcium Level 8.7 MG/DL (8.5-10.1) Total Bilirubin 2.4 MG/DL (0.2-1.0) H Direct Bilirubin 0.5 MG/DL (0.0-0.3) H Aspartate Amino Transf (AST/SGOT) 34 U/L (15-37) Alanine Aminotransferase (ALT/SGPT) 38 U/L (12-78) Alkaline Phosphatase 84 U/L (46-116) C-Reactive Protein, Quantitative 0.9 mg/dL (0.00-0.90) Total Protein 6.9 G/DL (6.4-8.2) Albumin 3.8 G/DL (3.4-5.0) Globulin 3.1 g/dL Albumin/Globulin Ratio 1.2 (1.0-2.7) Amylase Level 54 U/L (25-115) Lipase 148 U/L (73-393) Plan Problems: (1) Intractable abdominal pain (2) Intractable vomiting Assessment & Plan: very dehydrated constant emesis CT noted. exam as above unlikely appendicitis etiology unknown labs improved today n/v improved. -full liquids -iv fluids -iv abx -am labs -instructed that if anxiety should have his anxiety meds and not narcotics. will follow with recs thank you Castro Vaughan Jul 14, 2018 09:38
--- NOTE | 2018-07-14 10:26 | Diagnostic Imaging Report ---
Indication: Abdominal pain Comparison: None Single view of the abdomen obtained Findings: Bowel gas pattern is nonspecific. No mass, ectopic calcifications, or abnormal gas collections are identified. The bones are unremarkable. Impression: No acute findings
[2018-07-14] MEDS: D5NS 1,000 ML IV SCH ×2 (10:44→23:00)
--- NOTE | 2018-07-14 11:58 | NUR ---
INSURANCE ALL CLINICALS HAVE BEEN FAXED TO: [facility] JEN: LESIA F:[phone]
[2018-07-14 12:00] VITALS: BP 165/107
--- NOTE | 2018-07-14 13:55 | NUR ---
RADIOLOGY DEPT ABDOMEN X-RAY PERFORMED.P.DYE
[2018-07-14 15:00] VITALS: BP 141/100
--- NOTE | 2018-07-14 16:11 | NUR ---
CASE MANAGEMENT: REVIEW BIBA FROM HOME CC: VOMITING SI: INTRACTABLE VOMITING . ACUTE RENAL FAILURE T 98.2 HR 110 RR 16 BP 124/85 SAT 99% ROOM AIR WBC 20.3 H/H 19.8/56.5 IS: ZOSYN IV X1 ZOFRAN IV X1 ATIVAN IV X1 NS IVF BOLUS X1 INTERQUAL CRITERIA MET: PATIENT ADMITTED TO MED/SURG UNIT 07/13/2018 DCP: PATIENT IS FROM HOME CASE MANAGEMENT: REVIEW SI: INTRACTABLE VOMITING . ACUTE RENAL FAILURE T 98.0 HR 117 RR 20 BP 158/97 SAT 96% ROOM AIR WBC 11.1 NA 146 IS: D5 NS IVF @75ML/HR ZOSYN IV Q8HR ZOFRAN 4MG IV Q4HR PRN MED/SURG UNIT STATUS DCP: PATIENT IS FROM HOME
[2018-07-14] MEDS: Hydromorphone 0.5mg/0.5ml inj IVP PRN (16:55)
--- NOTE | 2018-07-14 17:30 | NUR ---
NURSE NOTES: Patient alert, oriented x4. Complains of abdominal pain, Diladud IVP administered as ordered, pain reassessed with improvement. Portable abdominal XR done at 0900, no acute findings. Diet changed to full liquids, tolerated well, denies nausea, coughing with dry heaves and sputum expectorate noted. Ativan IVP PRN administered, patient with visible shaking and anxiety. IVF infusing to RAC, rate increased to 75 ml/hr per MD order. Patient up to bathroom, voiding without difficulty, stool specimen obtained and sent to lab at 1330. Will continue to monitor.
--- NOTE | 2018-07-14 19:29 | NUR ---
HAND-OFF: Report given to Cortez Ingram RN.
--- NOTE | 2018-07-14 19:48 | NUR ---
NURSE NOTES: Patient in bed awake and oriented. Complaining of pain and nausea. PRN anti emetics and pain medications given for 10/10 abdominal pain. Needs attended. Due meds given. In stable condition.
[2018-07-14 20:00] VITALS: BP 142/101
--- NOTE | 2018-07-14 21:53 | NUR ---
NURSE NOTES: Patient still insists he is vomiting a lot. RN saw patient dry heaving but no vomitus present. Most of the contents in his bucket is mostly spit which he does every once in a while. Addendum: 07/14/18 at 2156 by LAURI STEWART RN RN MD made aware of patients complaints. No new orders noted.
[2018-07-15] VITALS: BP 158/104
[2018-07-15] MEDS: LORazepam Inj 2mg/ml 1ml IV PRN ×3 (03:58→15:55)
[2018-07-15 04:00] VITALS: BP 149/87
[2018-07-15] MEDS: Metoclopramide 10mg/2ml Inj IVP SCH ×4 (05:09→23:53)
[2018-07-15] MEDS: Hydromorphone 0.5mg/0.5ml inj IVP PRN ×2 (05:10→17:09)
[2018-07-15] MEDS: Piperacillin/Tazobactam 3.375 GM in NS 110 ML IVPB SCH (05:10)
[2018-07-15 06:51] LABS: BASOPHILS % (AUTO) 0.4 % (0.0-2.0); EOSINOPHILS % (AUTO) 0.6 % (0.0-3.0); HEMATOCRIT 42.5 % (42.0-52.0); HEMOGLOBIN 14.5 G/DL (14.2-18.0); LYMPHOCYTES % (AUTO) 20.5 % (20.0-45.0); MEAN CORPUSCULAR VOLUME 89 FL (80-99); MONOCYTES % (AUTO) 10.3 % (1.0-10.0); NEUTROPHILS % (AUTO) 68.1 % (45.0-75.0); PLATELET COUNT 199 K/UL (150-450); RED BLOOD COUNT 4.77 M/UL (4.70-6.10); WHITE BLOOD COUNT 10.5 K/UL (4.8-10.8)
[2018-07-15 07:19] LABS: ALANINE AMINOTRANSFERASE 35 U/L (12-78); ALBUMIN 3.4 G/DL (3.4-5.0); ALBUMIN/GLOBULIN RATIO 1.2 (1.0-2.7); ALKALINE PHOSPHATASE 78 U/L (46-116); ANION GAP 9 mmol/L (5-15); ASPARTATE AMINO TRANSFERASE 26 U/L (15-37); BILIRUBIN,TOTAL 1.8 MG/DL (0.2-1.0); BLOOD UREA NITROGEN 19 mg/dL (7-18); CALCIUM 8.3 MG/DL (8.5-10.1); CARBON DIOXIDE 26 MMOL/L (21-32); CHLORIDE 111 MMOL/L (98-107); CREATININE 1.2 MG/DL (0.55-1.30); POTASSIUM 3.5 MMOL/L (3.5-5.1); SODIUM 146 MMOL/L (136-145)
[2018-07-15 07:21] LABS: BILIRUBIN,DIRECT 0.4 MG/DL (0.0-0.3)
[2018-07-15 08:00] VITALS: BP 152/98
--- NOTE | 2018-07-15 08:00 | NUR ---
NURSE NOTES: received patient in bed, in room air, anxious requesting pain, anxiety and nausea medication. Nurse gave meds due and safe to be given at this time, and made dr. Jones. RAC IV access is patent and intact. Bed locked in the lowest position possible, call light within easy reach. siderails are up x2. Will continue to monitor patient and follow up with the plan of care.
[2018-07-15] MEDS: ALPRAZolam 0.25mg tab ORAL SCH (08:15)
--- NOTE | 2018-07-15 10:09 | NUR ---
Social Work This Sw met with patient, due to possible mental health and substance abuse history. 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 Patient is living with a roommate, his girlfriend and his cousin, who can assist as needed after discharge. Patient admitting to using his own natural substances, while smoking marijuana for the past ten years. Patient also admitted to taking Xanax for anxiety for the past five years. His maternal grandfather had a history of mental health issues in his family (possible Bipolar, with suicidal ideations). Patient denied any suicidal ideations, nor verbalizing any homicidal ideations at this time (pleasant and cooperative). Patient explains he has not been sleeping for the past five days, appears to show bizarre behavior, sentences not related to the conversation. Patient denied any auditory or visual hallucinations at this time. This Sw recommended Psychiatry to follow here. This Sw also provided outpatient Psychiatric clinic for follow up, along with a list of support/counseling services for substance abuse (even though, patient does not identify that he has a substance abuse problem at this time). Nursing informed. SW to follow as needed.
[2018-07-15 12:00] VITALS: BP 158/98
[2018-07-15] MEDS: ALPRAZolam 0.5mg tab ORAL SCH ×2 (12:29→18:11)
--- NOTE | 2018-07-15 13:27 | General Surgery Progress Note ---
General Surgery-Progress Note Subjective Additional Comments improving. labs improved. minimal n/v. multiple anxiety attacks. tolerating diet. +loose BM Objective Last 24 Hour Vital Signs Date Time Temp Pulse Resp B/P (MAP) Pulse Ox O2 Delivery O2 Flow Rate FiO2 07/15/18 12:00 99.0 72 19 158/98 (118) 99 07/15/18 09:00 Room Air 07/15/18 08:45 98.7 07/15/18 08:00 97.8 75 19 152/98 (116) 98 07/15/18 04:00 98.7 95 19 149/87 (107) 97 07/15/18 00:00 98.2 95 21 158/104 (122) 98 07/14/18 21:00 Room Air 07/14/18 20:00 98.1 88 20 142/101 (115) 98 07/14/18 15:00 97.6 96 20 141/100 (114) 98 I&O Intake and Output 07/14/18 07/15/18 19:00 07:00 Intake Total 1277.5 ml 1452.5 ml Output Total 3 ml Balance 1277.5 ml 1449.5 ml Intake Oral 840 ml 600 ml IV Total 437.5 ml 852.5 ml Output Urine Total 3 ml # Voids 1 Cardiovascular: RSR Respiratory: clear Abdomen: soft, flat, non-tender, present bowel sounds Extremities: no cyanosis Laboratory Tests Test 07/15/18 06:30 White Blood Count 10.5 K/UL (4.8-10.8) Red Blood Count 4.77 M/UL (4.70-6.10) Hemoglobin 14.5 G/DL (14.2-18.0) Hematocrit 42.5 % (42.0-52.0) Mean Corpuscular Volume 89 FL (80-99) Mean Corpuscular Hemoglobin 30.3 PG (27.0-31.0) Mean Corpuscular Hemoglobin Concent 34.1 G/DL (32.0-36.0) Red Cell Distribution Width 11.0 % (11.6-14.8) L Platelet Count 199 K/UL (150-450) Mean Platelet Volume 6.4 FL (6.5-10.1) L Neutrophils (%) (Auto) 68.1 % (45.0-75.0) Lymphocytes (%) (Auto) 20.5 % (20.0-45.0) Monocytes (%) (Auto) 10.3 % (1.0-10.0) H Eosinophils (%) (Auto) 0.6 % (0.0-3.0) Basophils (%) (Auto) 0.4 % (0.0-2.0) Sodium Level 146 MMOL/L (136-145) H Potassium Level 3.5 MMOL/L (3.5-5.1) Chloride Level 111 MMOL/L (98-107) H Carbon Dioxide Level 26 MMOL/L (21-32) Anion Gap 9 mmol/L (5-15) Blood Urea Nitrogen 19 mg/dL (7-18) H Creatinine 1.2 MG/DL (0.55-1.30) Estimat Glomerular Filtration Rate > 60 mL/min (>60) Glucose Level 117 MG/DL (74-106) H Calcium Level 8.3 MG/DL (8.5-10.1) L Total Bilirubin 1.8 MG/DL (0.2-1.0) H Direct Bilirubin 0.4 MG/DL (0.0-0.3) H Aspartate Amino Transf (AST/SGOT) 26 U/L (15-37) Alanine Aminotransferase (ALT/SGPT) 35 U/L (12-78) Alkaline Phosphatase 78 U/L (46-116) Total Protein 6.3 G/DL (6.4-8.2) L Albumin 3.4 G/DL (3.4-5.0) Globulin 2.9 g/dL Albumin/Globulin Ratio 1.2 (1.0-2.7) Plan Problems: (1) Intractable abdominal pain (2) Intractable vomiting Assessment & Plan: very dehydrated constant emesis CT noted. exam as above unlikely appendicitis etiology unknown labs improved n/v improved. -regular diet -d/c iv fluids -iv abx d/c given no active infectious process -am labs -instructed that if anxiety should have his anxiety meds and not narcotics. -d/c planning will follow with recs thank you Castro Vaughan Jul 15, 2018 13:27
--- NOTE | 2018-07-15 13:29 | Infectious Diseases Prog Note ---
Assessment/Plan Assessment/Plan A; Gastroenteritis Acute renal failure Dehydration P: Continue Zosyn Subjective ROS Limited/Unobtainable: No Constitutional: Reports: anorexia Respiratory: Reports: no symptoms Cardiovascular: Reports: no symptoms Gastrointestinal/Abdominal: Reports: nausea, vomiting, diarrhea, other - abdominal pain all are better today Genitourinary: Reports: no symptoms Neurologic: Reports: no symptoms Allergies: Coded Allergies: No Known Allergies (Unverified , 07/13/18) Objective Vital Signs Last 24 Hour Vital Signs Date Time Temp Pulse Resp B/P (MAP) Pulse Ox O2 Delivery O2 Flow Rate FiO2 07/15/18 12:00 99.0 72 19 158/98 (118) 99 07/15/18 09:00 Room Air 07/15/18 08:45 98.7 07/15/18 08:00 97.8 75 19 152/98 (116) 98 07/15/18 04:00 98.7 95 19 149/87 (107) 97 07/15/18 00:00 98.2 95 21 158/104 (122) 98 07/14/18 21:00 Room Air 07/14/18 20:00 98.1 88 20 142/101 (115) 98 07/14/18 15:00 97.6 96 20 141/100 (114) 98 Height (Feet): 6 Height (Inches): 1.00 Weight (Pounds): 177 General Appearance: no acute distress HEENT: other - dry mouth Respiratory/Chest: lungs clear Cardiovascular: normal rate Abdomen: other - soft , mildly tender Extremities: no edema Neurologic/Psychiatric: alert, oriented x 3, responsive Laboratory Tests Test 07/15/18 06:30 White Blood Count 10.5 K/UL (4.8-10.8) Red Blood Count 4.77 M/UL (4.70-6.10) Hemoglobin 14.5 G/DL (14.2-18.0) Hematocrit 42.5 % (42.0-52.0) Mean Corpuscular Volume 89 FL (80-99) Mean Corpuscular Hemoglobin 30.3 PG (27.0-31.0) Mean Corpuscular Hemoglobin Concent 34.1 G/DL (32.0-36.0) Red Cell Distribution Width 11.0 % (11.6-14.8) L Platelet Count 199 K/UL (150-450) Mean Platelet Volume 6.4 FL (6.5-10.1) L Neutrophils (%) (Auto) 68.1 % (45.0-75.0) Lymphocytes (%) (Auto) 20.5 % (20.0-45.0) Monocytes (%) (Auto) 10.3 % (1.0-10.0) H Eosinophils (%) (Auto) 0.6 % (0.0-3.0) Basophils (%) (Auto) 0.4 % (0.0-2.0) Sodium Level 146 MMOL/L (136-145) H Potassium Level 3.5 MMOL/L (3.5-5.1) Chloride Level 111 MMOL/L (98-107) H Carbon Dioxide Level 26 MMOL/L (21-32) Anion Gap 9 mmol/L (5-15) Blood Urea Nitrogen 19 mg/dL (7-18) H Creatinine 1.2 MG/DL (0.55-1.30) Estimat Glomerular Filtration Rate > 60 mL/min (>60) Glucose Level 117 MG/DL (74-106) H Calcium Level 8.3 MG/DL (8.5-10.1) L Total Bilirubin 1.8 MG/DL (0.2-1.0) H Direct Bilirubin 0.4 MG/DL (0.0-0.3) H Aspartate Amino Transf (AST/SGOT) 26 U/L (15-37) Alanine Aminotransferase (ALT/SGPT) 35 U/L (12-78) Alkaline Phosphatase 78 U/L (46-116) Total Protein 6.3 G/DL (6.4-8.2) L Albumin 3.4 G/DL (3.4-5.0) Globulin 2.9 g/dL Albumin/Globulin Ratio 1.2 (1.0-2.7) Current Medications Medications (Trade) Dose Ordered Sig/Malika Route PRN Reason Start Time Stop Time Status Last Admin Dose Admin Acetaminophen (Tylenol) 650 mg Q4H PRN ORAL Mild Pain/Temp > 100.5 07/14/18 22:00 08/13/18 21:59 07/15/18 08:15 Alprazolam (Xanax) 0.5 mg THREE TIMES A DAY ORAL 07/15/18 13:00 07/22/18 12:59 07/15/18 12:29 Hydromorphone HCl (Dilaudid) 0.5 mg Q12H PRN IVP For Pain 07/14/18 09:35 07/21/18 09:34 07/15/18 05:10 Lorazepam (Ativan 2mg/ml 1ml) 1 mg Q4H PRN IV For Anxiety 07/13/18 13:15 07/20/18 13:14 07/15/18 11:11 Metoclopramide HCl (Reglan) 10 mg Q6HR IVP 07/13/18 18:00 08/12/18 17:59 07/15/18 11:11 Mirtazapine (Remeron) 30 mg BEDTIME ORAL 07/15/18 21:00 08/14/18 20:59 Ondansetron HCl (Zofran) 4 mg Q4H PRN IVP Nausea & Vomiting 07/13/18 08:55 08/12/18 08:54 07/15/18 08:20 Winston Staton MD Jul 15, 2018 13:29
--- NOTE | 2018-07-15 15:38 | NUR ---
INSURANCE UPDATED CLINICALS FAXED TO: [facility]ER: PEND F:[phone]
[2018-07-15 16:00] VITALS: BP 153/99
--- NOTE | 2018-07-15 16:18 | NUR ---
CASE MANAGEMENT: REVIEW SI: INTRACTABLE VOMITING . ACUTE RENAL FAILURE T 99.0 HR 72 RR 19 BP 158/98 SAT 99% ROOM AIR NA 146 BUN 19 IS: REGLAN IV Q6HR XANAX PO TID DILAUDID 0.5MG IV Q12HR MED/SURG UNIT STATUS DCP: PATIENT IS FROM HOME
--- NOTE | 2018-07-15 18:22 | General Progress Note ---
Assessment/Plan Problem List: (1) ARF (acute renal failure) ICD Codes: N17.9 - Acute kidney failure, unspecified SNOMED: 35752367 Qualifiers: Qualified Codes: N17.9 - Acute kidney failure, unspecified (2) Intractable abdominal pain ICD Codes: R10.9 - Unspecified abdominal pain SNOMED: 18549265, 672503132 (3) Dehydration ICD Codes: E86.0 - Dehydration SNOMED: 28672545, 836384507 (4) Intractable vomiting ICD Codes: R11.10 - Vomiting, unspecified SNOMED: 657440740 Qualifiers: Qualified Codes: R11.2 - Nausea with vomiting, unspecified Status: stable, progressing Assessment/Plan cont current rxc ivf antiemetics psych consult Subjective ROS Limited/Unobtainable: No Constitutional: Reports: malaise, weakness HEENT: Reports: no symptoms Cardiovascular: Reports: no symptoms Respiratory: Reports: no symptoms Gastrointestinal/Abdominal: Reports: abdominal pain, diarrhea, nausea Genitourinary: Reports: no symptoms Neurologic/Psychiatric: Reports: anxiety Endocrine: Reports: no symptoms Hematologic/Lymphatic: Reports: no symptoms Allergies: Coded Allergies: No Known Allergies (Unverified , 07/13/18) All Systems: reviewed and negative except above Subjective continues to complain of abd pain and nausea. less vomiting. social service coordinator noted- concern about mental health and substance misuse. Objective Last 24 Hour Vital Signs Date Time Temp Pulse Resp B/P (MAP) Pulse Ox O2 Delivery O2 Flow Rate FiO2 07/15/18 17:39 97.9 07/15/18 16:00 97.9 63 20 153/99 (117) 99 07/15/18 12:00 99.0 72 19 158/98 (118) 99 07/15/18 09:00 Room Air 07/15/18 08:45 98.7 07/15/18 08:00 97.8 75 19 152/98 (116) 98 07/15/18 04:00 98.7 95 19 149/87 (107) 97 07/15/18 00:00 98.2 95 21 158/104 (122) 98 07/14/18 21:00 Room Air 07/14/18 20:00 98.1 88 20 142/101 (115) 98 Intake and Output 07/14/18 07/15/18 18:59 06:59 Intake Total 1202.5 ml 1500 ml Output Total 3 ml Balance 1202.5 ml 1497 ml Intake Oral 840 ml 600 ml IV Total 362.5 ml 900 ml Output Urine Total 3 ml # Voids 1 Laboratory Tests 07/15/18 06:30: White Blood Count 10.5, Red Blood Count 4.77, Hemoglobin 14.5, Hematocrit 42.5, Mean Corpuscular Volume 89, Mean Corpuscular Hemoglobin 30.3, Mean Corpuscular Hemoglobin Concent 34.1, Red Cell Distribution Width 11.0L, Platelet Count 199, Mean Platelet Volume 6.4L, Neutrophils (%) (Auto) 68.1, Lymphocytes (%) (Auto) 20.5, Monocytes (%) (Auto) 10.3H, Eosinophils (%) (Auto) 0.6, Basophils (%) ( Auto) 0.4, Sodium Level 146H, Potassium Level 3.5, Chloride Level 111H, Carbon Dioxide Level 26, Anion Gap 9, Blood Urea Nitrogen 19H, Creatinine 1.2, Estimat Glomerular Filtration Rate > 60, Glucose Level 117H, Calcium Level 8.3L, Total Bilirubin 1.8H, Direct Bilirubin 0.4H, Aspartate Amino Transf (AST/SGOT) 26, Alanine Aminotransferase (ALT/SGPT) 35, Alkaline Phosphatase 78, Total Protein 6.3L, Albumin 3.4, Globulin 2.9, Albumin/Globulin Ratio 1.2 Height (Feet): 6 Height (Inches): 1.00 Weight (Pounds): 177 General Appearance: WD/WN Neck: supple Cardiovascular: regular rhythm Respiratory/Chest: lungs clear Abdomen: normal bowel sounds, non tender, soft, no organomegaly Edema: no edema noted Arm (L), no edema noted Arm (R), no edema noted Leg (L), no edema noted Leg (R), no edema noted Pedal (L), no edema noted Pedal (R), no edema noted Generalized Vinicius Jones MD Jul 15, 2018 18:22
--- NOTE | 2018-07-15 19:40 | NUR ---
NURSE NOTES: Received report from CASSY Us and rounds done. Received pt ambulating in the room, A&OX4, denies pain at this time, no distress noted. IV R AC #20 patent and intact. Will continue to monitor.
--- NOTE | 2018-07-15 19:43 | NUR ---
HAND-OFF: Report given to CASSY Atkins.
[2018-07-15 20:00] VITALS: BP 139/91
--- NOTE | 2018-07-15 21:00 | NUR ---
NURSE NOTES: Pt refused SCD. Pt ambulating in the hallway.
--- NOTE | 2018-07-15 21:25 | Consultation ---
History of Present Illness General Chief Complaint: Vomiting Present Illness HPI 7-year-old male with history of hepatitis A, and cannabis dependence and benzo dependence anxiety pw an episode of severe nausea, vomiting, and diarrhea approximately eight days ago. It improved, however over the last four to five days he has had intractable nausea and vomiting. the pt was severely anxious and agitated. the pt stated that he was not given xanax nor his remeron. the pt was educated about smoking cannabis and hyperemesis. the pt stated that the cannabis decreases his anxiety. the pt denied si/hi Allergies: Coded Allergies: No Known Allergies (Unverified , 07/13/18) Medication History Scheduled Alprazolam* (Xanax*), 0.25 MG ORAL TID, (Reported) Patient History History Provided By: Patient, Medical Record, PMD Healthcare decision maker Resuscitation status Full Code Advanced Directive on File Past Medical/Surgical History Past Medical/Surgical History: (1) ARF (acute renal failure) (2) Hyperbilirubinemia (3) Intractable abdominal pain (4) Dehydration (5) Leukocytosis (6) Acute renal failure (7) Intractable vomiting Review of Systems Psychiatric: Reports: prior hx, anxiety, depressed feelings, emotional problems Physical Exam General Appearance: alert Neurologic: oriented x 3, responsive, depressed affect Last 24 Hour Vital Signs Date Time Temp Pulse Resp B/P (MAP) Pulse Ox O2 Delivery O2 Flow Rate FiO2 07/15/18 20:00 99.0 92 20 139/91 (107) 95 07/15/18 17:39 97.9 07/15/18 16:00 97.9 63 20 153/99 (117) 99 07/15/18 12:00 99.0 72 19 158/98 (118) 99 07/15/18 09:00 Room Air 07/15/18 08:45 98.7 07/15/18 08:00 97.8 75 19 152/98 (116) 98 07/15/18 04:00 98.7 95 19 149/87 (107) 97 07/15/18 00:00 98.2 95 21 158/104 (122) 98 Intake and Output 07/14/18 07/15/18 18:59 06:59 Intake Total 1202.5 ml 1500 ml Output Total 3 ml Balance 1202.5 ml 1497 ml Intake Oral 840 ml 600 ml IV Total 362.5 ml 900 ml Output Urine Total 3 ml # Voids 1 Laboratory Tests Test 07/15/18 06:30 White Blood Count 10.5 K/UL (4.8-10.8) Red Blood Count 4.77 M/UL (4.70-6.10) Hemoglobin 14.5 G/DL (14.2-18.0) Hematocrit 42.5 % (42.0-52.0) Mean Corpuscular Volume 89 FL (80-99) Mean Corpuscular Hemoglobin 30.3 PG (27.0-31.0) Mean Corpuscular Hemoglobin Concent 34.1 G/DL (32.0-36.0) Red Cell Distribution Width 11.0 % (11.6-14.8) L Platelet Count 199 K/UL (150-450) Mean Platelet Volume 6.4 FL (6.5-10.1) L Neutrophils (%) (Auto) 68.1 % (45.0-75.0) Lymphocytes (%) (Auto) 20.5 % (20.0-45.0) Monocytes (%) (Auto) 10.3 % (1.0-10.0) H Eosinophils (%) (Auto) 0.6 % (0.0-3.0) Basophils (%) (Auto) 0.4 % (0.0-2.0) Sodium Level 146 MMOL/L (136-145) H Potassium Level 3.5 MMOL/L (3.5-5.1) Chloride Level 111 MMOL/L (98-107) H Carbon Dioxide Level 26 MMOL/L (21-32) Anion Gap 9 mmol/L (5-15) Blood Urea Nitrogen 19 mg/dL (7-18) H Creatinine 1.2 MG/DL (0.55-1.30) Estimat Glomerular Filtration Rate > 60 mL/min (>60) Glucose Level 117 MG/DL (74-106) H Calcium Level 8.3 MG/DL (8.5-10.1) L Total Bilirubin 1.8 MG/DL (0.2-1.0) H Direct Bilirubin 0.4 MG/DL (0.0-0.3) H Aspartate Amino Transf (AST/SGOT) 26 U/L (15-37) Alanine Aminotransferase (ALT/SGPT) 35 U/L (12-78) Alkaline Phosphatase 78 U/L (46-116) Total Protein 6.3 G/DL (6.4-8.2) L Albumin 3.4 G/DL (3.4-5.0) Globulin 2.9 g/dL Albumin/Globulin Ratio 1.2 (1.0-2.7) Hepatitis A Antibody Total Pending Hepatitis B Surface Antigen Pending Hepatitis B Surface Antibody Pending Hepatitis C Antibody Pending Height (Feet): 6 Height (Inches): 1.00 Weight (Pounds): 177 Medications Current Medications Medications (Trade) Dose Ordered Sig/Malika Route PRN Reason Start Time Stop Time Status Last Admin Dose Admin Acetaminophen (Tylenol) 650 mg Q4H PRN ORAL Mild Pain/Temp > 100.5 07/14/18 22:00 08/13/18 21:59 07/15/18 08:15 Alprazolam (Xanax) 0.5 mg THREE TIMES A DAY ORAL 07/15/18 13:00 07/22/18 12:59 07/15/18 18:11 Hydromorphone HCl (Dilaudid) 0.5 mg Q12H PRN IVP For Pain 07/14/18 09:35 07/21/18 09:34 07/15/18 17:09 Lorazepam (Ativan 2mg/ml 1ml) 1 mg Q4H PRN IV For Anxiety 07/13/18 13:15 07/20/18 13:14 07/15/18 15:55 Metoclopramide HCl (Reglan) 10 mg Q6HR IVP 07/13/18 18:00 08/12/18 17:59 07/15/18 17:09 Mirtazapine (Remeron) 30 mg BEDTIME ORAL 07/15/18 21:00 08/14/18 20:59 07/15/18 20:48 Ondansetron HCl (Zofran) 4 mg Q4H PRN IVP Nausea & Vomiting 07/13/18 08:55 08/12/18 08:54 07/15/18 18:15 Assessment/Plan Assessment/Plan anxiety do cannabis dependence remeron 15mg qhs xanax .5mg tid provided sebastian/Viky Knight MD Jul 15, 2018 21:25
[2018-07-16] VITALS: BP 148/101
[2018-07-16] MEDS: LORazepam Inj 2mg/ml 1ml IV PRN (02:02)
[2018-07-16 04:00] VITALS: BP 146/96
[2018-07-16] MEDS: Hydromorphone 0.5mg/0.5ml inj IVP PRN (05:11)
[2018-07-16] MEDS: Metoclopramide 10mg/2ml Inj IVP SCH (05:48)
[2018-07-16 06:09] LABS: BASOPHILS % (AUTO) 0.7 % (0.0-2.0); EOSINOPHILS % (AUTO) 1.3 % (0.0-3.0); HEMATOCRIT 44.9 % (42.0-52.0); HEMOGLOBIN 15.6 G/DL (14.2-18.0); LYMPHOCYTES % (AUTO) 16.3 % (20.0-45.0); MEAN CORPUSCULAR VOLUME 88 FL (80-99); MONOCYTES % (AUTO) 7.6 % (1.0-10.0); NEUTROPHILS % (AUTO) 74.1 % (45.0-75.0); PLATELET COUNT 212 K/UL (150-450); RED BLOOD COUNT 5.13 M/UL (4.70-6.10); RED CELL DISTRIBUTION WIDTH 10.4 % (11.6-14.8); WHITE BLOOD COUNT 15.2 K/UL (4.8-10.8)
[2018-07-16 06:39] LABS: ALANINE AMINOTRANSFERASE 34 U/L (12-78); ALBUMIN 3.7 G/DL (3.4-5.0); ALBUMIN/GLOBULIN RATIO 1.2 (1.0-2.7); ALKALINE PHOSPHATASE 93 U/L (46-116); ANION GAP 11 mmol/L (5-15); ASPARTATE AMINO TRANSFERASE 23 U/L (15-37); BILIRUBIN,TOTAL 1.1 MG/DL (0.2-1.0); BLOOD UREA NITROGEN 17 mg/dL (7-18); CARBON DIOXIDE 24 MMOL/L (21-32); CHLORIDE 107 MMOL/L (98-107); CREATININE 1.2 MG/DL (0.55-1.30); POTASSIUM 3.5 MMOL/L (3.5-5.1); SODIUM 142 MMOL/L (136-145)
[2018-07-16 06:56] LABS: BILIRUBIN,DIRECT 0.2 MG/DL (0.0-0.3)
--- NOTE | 2018-07-16 07:35 | NUR ---
HAND-OFF: Report given to CASSY Gonzalez. Pt in stable condition.
[2018-07-16] MEDS ORDERED: XANAX0.5 MG ORAL (07:37)
[2018-07-16] MEDS ORDERED: ZOFRAN ODT8 MG ORAL (07:37)
[2018-07-16] MEDS ORDERED: MIRTAZAPINE15 M3 ORAL (07:37)
--- NOTE | 2018-07-16 07:43 | Discharge Instructions ---
Discharge Instructions Discharge Instructions Follow Up Orders follow up with pmd next week to have repeat cbc and cmp For Congestive Heart Failure Reminder Report to your physician any weight gain of 5 pounds or more in one week. Vinicius Jones MD Jul 16, 2018 07:43
--- NOTE | 2018-07-16 07:56 | NUR ---
NURSE NOTES: Patient is alert and oriented,patient sitting up in the chair,ate some of his breakfast,patient anticipating discharge this morning,DR Jones was here this Am to see patient.Will monitor for Discharge order fro DR Jones.
[2018-07-16 08:00] VITALS: BP 155/103
[2018-07-16] MEDS: ALPRAZolam 0.5mg tab ORAL SCH (08:20)
--- NOTE | 2018-07-16 08:30 | Discharge Summary ---
DATE OF ADMISSION: 07/13/2018 DATE OF DISCHARGE: 07/16/2018 ADMISSION DIAGNOSES: 1. Intractable nausea and vomiting. 2. Acute renal failure. 3. Dehydration. 4. History of anxiety disorder. DISCHARGE DIAGNOSES: 1. Intractable nausea and vomiting. 2. Acute renal failure. 3. Dehydration. 4. History of anxiety disorder. 5. Possible cyclic vomiting. 6. Gastroenteritis. 7. renal failure. HOSPITAL COURSE: The patient is a 28-year-old male with a history of anxiety disorder, who presented with complaints of intractable nausea and vomiting for five days. On evaluation in the emergency room, a CT scan that was also unremarkable. There were no surgical issues. The patient was given IV fluids. Antiemetics and pain medications. Surgical consultation was obtained. The patient improved with conservative therapy. His renal failure improved with hydration. On discharge, he was stable. He does follow up on the day of discharge with his primary care doctor. He will be prescribed medications for nausea. He is instructed to return for any worsening abdominal pain, fevers, chills, or shortness of breath. DISCHARGE MEDICATIONS: Please see discharge list for discharge medications. DIET: Mcdowell diet. ACTIVITY: Ad-helen. Vinicius Jones M.D. DR: FARIHA JOB#: [id number] CC:
[2018-07-16] MEDS ORDERED: D5NS 1000ml IV ONE (09:52)
--- NOTE | 2018-07-16 10:01 | NUR ---
NURSE NOTES: Discharge at this time with discharge instructions give,IV removed by Charge Nurse.Discharge instructions give.Discharge prescription given.Patient has his personal belongings.Patient accompany down to waiting [employer] Car to take patient home.
--- NOTE | 2018-07-16 15:56 | NUR ---
INSURANCE UPDATED CLINICALS , REVIEW AND DISCHARGE SUMMARY FAXED TO: [facility]: [place] F:[phone] P:[phone] REF#[id number]
--- NOTE | 2018-07-16 22:34 | General Progress Note ---
Assessment/Plan Status: unchanged Assessment/Plan anxiety do cannabis dependence remeron 15mg qhs xanax .5mg tid provided ro/st Subjective Date patient seen: Jul 14, 2018 Neurologic/Psychiatric: Reports: anxiety, depressed, emotional problems Allergies: Coded Allergies: No Known Allergies (Unverified , 07/13/18) Objective Last 24 Hour Vital Signs Date Time Temp Pulse Resp B/P (MAP) Pulse Ox O2 Delivery O2 Flow Rate FiO2 07/16/18 09:00 Room Air 07/16/18 08:00 98.1 82 19 155/103 (120) 98 07/16/18 04:00 98.3 83 18 146/96 (113) 98 07/16/18 00:00 98.5 105 19 148/101 (117) 94 Intake and Output 07/15/18 07/16/18 18:59 06:59 Intake Total 2610.0 ml 240 ml Balance 2610.0 ml 240 ml Intake Oral 2500 ml 240 ml IV Total 110.0 ml # Voids 6 3 Laboratory Tests 07/16/18 05:15: White Blood Count 15.2H, Red Blood Count 5.13, Hemoglobin 15.6, Hematocrit 44.9 , Mean Corpuscular Volume 88, Mean Corpuscular Hemoglobin 30.5, Mean Corpuscular Hemoglobin Concent 34.8, Red Cell Distribution Width 10.4L, Platelet Count 212, Mean Platelet Volume 6.5, Neutrophils (%) (Auto) 74.1, Lymphocytes (%) (Auto) 16.3L, Monocytes (%) (Auto) 7.6, Eosinophils (%) (Auto) 1.3, Basophils (%) (Auto) 0.7, Sodium Level 142, Potassium Level 3.5, Chloride Level 107, Carbon Dioxide Level 24, Anion Gap 11, Blood Urea Nitrogen 17, Creatinine 1.2, Estimat Glomerular Filtration Rate > 60, Glucose Level 125H, Calcium Level 9.0, Total Bilirubin 1.1H, Direct Bilirubin 0.2, Aspartate Amino Transf (AST/SGOT) 23, Alanine Aminotransferase (ALT/SGPT) 34, Alkaline Phosphatase 93, Total Protein 6.9, Albumin 3.7, Globulin 3.2, Albumin/Globulin Ratio 1.2 Height (Feet): 6 Height (Inches): 1.00 Weight (Pounds): 177 General Appearance: alert, agitated, thin Farhadi,Pantea MD Jul 16, 2018 22:34
--- NOTE | 2018-07-16 22:35 | General Progress Note ---
Assessment/Plan Status: unchanged Assessment/Plan anxiety do cannabis dependence remeron 15mg qhs xanax .5mg tid provided ro/st Subjective Date patient seen: Jul 15, 2018 Neurologic/Psychiatric: Reports: anxiety, depressed, emotional problems Allergies: Coded Allergies: No Known Allergies (Unverified , 07/13/18) Objective Last 24 Hour Vital Signs Date Time Temp Pulse Resp B/P (MAP) Pulse Ox O2 Delivery O2 Flow Rate FiO2 07/16/18 09:00 Room Air 07/16/18 08:00 98.1 82 19 155/103 (120) 98 07/16/18 04:00 98.3 83 18 146/96 (113) 98 07/16/18 00:00 98.5 105 19 148/101 (117) 94 Intake and Output 07/15/18 07/16/18 18:59 06:59 Intake Total 2610.0 ml 240 ml Balance 2610.0 ml 240 ml Intake Oral 2500 ml 240 ml IV Total 110.0 ml # Voids 6 3 Laboratory Tests 07/16/18 05:15: White Blood Count 15.2H, Red Blood Count 5.13, Hemoglobin 15.6, Hematocrit 44.9 , Mean Corpuscular Volume 88, Mean Corpuscular Hemoglobin 30.5, Mean Corpuscular Hemoglobin Concent 34.8, Red Cell Distribution Width 10.4L, Platelet Count 212, Mean Platelet Volume 6.5, Neutrophils (%) (Auto) 74.1, Lymphocytes (%) (Auto) 16.3L, Monocytes (%) (Auto) 7.6, Eosinophils (%) (Auto) 1.3, Basophils (%) (Auto) 0.7, Sodium Level 142, Potassium Level 3.5, Chloride Level 107, Carbon Dioxide Level 24, Anion Gap 11, Blood Urea Nitrogen 17, Creatinine 1.2, Estimat Glomerular Filtration Rate > 60, Glucose Level 125H, Calcium Level 9.0, Total Bilirubin 1.1H, Direct Bilirubin 0.2, Aspartate Amino Transf (AST/SGOT) 23, Alanine Aminotransferase (ALT/SGPT) 34, Alkaline Phosphatase 93, Total Protein 6.9, Albumin 3.7, Globulin 3.2, Albumin/Globulin Ratio 1.2 Height (Feet): 6 Height (Inches): 1.00 Weight (Pounds): 177 General Appearance: alert, severe distress, agitated Farhadi,Pantea MD Jul 16, 2018 22:35
--- NOTE | 2018-07-16 22:35 | General Progress Note ---
Assessment/Plan Assessment/Plan anxiety do cannabis dependence remeron 15mg qhs xanax .5mg tid provided ro/st Subjective Neurologic/Psychiatric: Reports: anxiety, depressed, emotional problems Allergies: Coded Allergies: No Known Allergies (Unverified , 07/13/18) Objective Last 24 Hour Vital Signs Date Time Temp Pulse Resp B/P (MAP) Pulse Ox O2 Delivery O2 Flow Rate FiO2 07/16/18 09:00 Room Air 07/16/18 08:00 98.1 82 19 155/103 (120) 98 07/16/18 04:00 98.3 83 18 146/96 (113) 98 07/16/18 00:00 98.5 105 19 148/101 (117) 94 Intake and Output 07/15/18 07/16/18 18:59 06:59 Intake Total 2610.0 ml 240 ml Balance 2610.0 ml 240 ml Intake Oral 2500 ml 240 ml IV Total 110.0 ml # Voids 6 3 Laboratory Tests 07/16/18 05:15: White Blood Count 15.2H, Red Blood Count 5.13, Hemoglobin 15.6, Hematocrit 44.9 , Mean Corpuscular Volume 88, Mean Corpuscular Hemoglobin 30.5, Mean Corpuscular Hemoglobin Concent 34.8, Red Cell Distribution Width 10.4L, Platelet Count 212, Mean Platelet Volume 6.5, Neutrophils (%) (Auto) 74.1, Lymphocytes (%) (Auto) 16.3L, Monocytes (%) (Auto) 7.6, Eosinophils (%) (Auto) 1.3, Basophils (%) (Auto) 0.7, Sodium Level 142, Potassium Level 3.5, Chloride Level 107, Carbon Dioxide Level 24, Anion Gap 11, Blood Urea Nitrogen 17, Creatinine 1.2, Estimat Glomerular Filtration Rate > 60, Glucose Level 125H, Calcium Level 9.0, Total Bilirubin 1.1H, Direct Bilirubin 0.2, Aspartate Amino Transf (AST/SGOT) 23, Alanine Aminotransferase (ALT/SGPT) 34, Alkaline Phosphatase 93, Total Protein 6.9, Albumin 3.7, Globulin 3.2, Albumin/Globulin Ratio 1.2 Height (Feet): 6 Height (Inches): 1.00 Weight (Pounds): 177 General Appearance: alert, severe distress, agitated Viky Farias MD Jul 16, 2018 22:35
--- NOTE | 2018-07-19 09:58 | NUR ---
INSURANCE DISCHARGE SUMMARY FAXED TO: [facility] JEN: [place] F:[phone] P:[phone] REF#[id number]
== END 2018-07-16 09:53 | disposition home or self-care (01) | DRG 683 ==
LOC: EDBD 01:44 → EMR 02:00 → 3E 03:16 → EDBEDREQ 03:49 → 3E 04:57
DX: N17.9 Acute kidney failure, unspecified (principal); F13.20 Sedative, hypnotic or anxiolytic dependence, uncomplicated; R11.2 Nausea with vomiting, unspecified; E86.0 Dehydration; F41.9 Anxiety disorder, unspecified; G43.A0 Cyclical vomiting, in migraine, not intractable; K52.9 Noninfective gastroenteritis and colitis, unspecified; F12.20 Cannabis dependence, uncomplicated
CPT/HCPCS: 36415; 74018; 74176; 80053; 80307; 81003; 82150; 82248; 83605; 83690; 85025; 85610; 85651; 85730; 86140; 86705; 86708; 86709; 86803; 87045; 87324; 87340; 87517; 96361; 96365; 96367; 96375; 99285; J2405; J2765

== ENCOUNTER 2019-01-02 14:43 | Emergency (ER) | payer BC, OTHER ==
[~2019-01-02] VITALS: Ht 185.4 cm; Wt 81.6 kg
[~2019-01-02 14:43] MED LIST changes: +MIRTAZAPINE15 M3 ORAL; +XANAX0.5 MG ORAL; +ZOFRAN ODT8 MG ORAL
[2019-01-02 14:50] VITALS: BP 147/84
--- NOTE | 2019-01-02 14:50 | NUR ---
ED Nurse Note: Patient walked into ED c/o upper epigatric burning pain, states that he had 20 episodes of vomit since thursday. patient rates his pain a 10/10. patient is alert and oriented x4, ambulatory with a steady gait, VSS. at time of arrival patient has had 1 episode of vomit, once patient was placed in a monior patient was given a vomit bag.
[2019-01-02] MEDS ORDERED: Haloperidol Lactate 5 MG in D5W 55 ML IVPB ONE (15:00)
--- NOTE | 2019-01-02 15:17 | Emergency Room Report ---
History of Present Illness General Chief Complaint: Abdominal Pain Source: Patient Present Illness HPI Patient is a 28-year-old male presented after increased vomiting for the past 2 to 3 days. Patient reports having multiple episodes of initially clear vomit which subsequently became blood-streaked. Patient states that he had prior history of anxiety as well as hepatitis A. He reports having episodes of similar symptoms in the past. Patient states that he has been having severe burning sensation in the epigastric area. He denies any recent alcohol use. He states he smokes smokes marijuana daily. He denies any diarrhea. He states he vomited unknown number of times. Allergies: Coded Allergies: No Known Allergies (Unverified , 07/13/18) Patient History Past Medical History: see triage record Reviewed Nursing Documentation: PMH: Agreed; PSxH: Agreed Nursing Documentation-PM Past Medical History: No History, Except For Hx Cardiac Problems: No Hx Cancer: No Hx Gastrointestinal Problems: Yes Hx Neurological Problems: No Hx Neurologic Surgery: No Review of Systems All Other Systems: negative except mentioned in HPI Physical Exam Vital Signs Date Time Temp Pulse Resp B/P (MAP) Pulse Ox O2 Delivery O2 Flow Rate FiO2 01/02/19 14:47 97.9 87 20 147/84 (105) 99 Room Air Sp02 EP Interpretation: reviewed, normal General Appearance: normal inspection, well appearing, alert, GCS 15, mild distress Head: atraumatic ENT: normal ENT inspection, hearing grossly normal, normal voice Neck: normal inspection, full range of motion, supple, no bony tend Respiratory: normal inspection, lungs clear, normal breath sounds, no respiratory distress, no retraction, no wheezing Cardiovascular #1: regular rate, rhythm, no edema Gastrointestinal: normal inspection, normal bowel sounds, non tender, soft, no guarding, no hernia Genitourinary: no CVA tenderness Musculoskeletal: normal inspection, back normal, normal range of motion Neurologic: normal inspection, alert, oriented x3, responsive, functional architect III-XII nml as tested, motor strength/tone normal, speech normal Psychiatric: normal inspection, judgement/insight normal, mood/affect normal, anxious Skin: normal inspection, normal color, no rash Medical Decision Making Diagnostic Impression: Primary Impression: Cyclic vomiting syndrome ER Course Patient presented for vomiting and abdominal pain. Differential diagnosis include was not limited to gastritis, peptic ulcer disease, hyperemesis, cyclic vomiting syndrome, among others. Because of complexity of patient's case laboratory studies were ordered. Patient was noted to have some prior history of similar symptoms in the past. He started on IV fluids as well as IV antiemetic. Patient was noted to have some reported small amount of blood in emesis and was given acid blockers.Patient was noted to have been given large amount of IV fluids and initially appeared to be somewhat dehydrated. This was noted to be improved after IV fluids. Patient was not noted to have any recurrent vomiting after IV medications. Patient was advised marijuana cessation. He was advised to follow-up with his primary care physician for recheck. Labs Test 01/02/19 15:05 01/02/19 18:15 Sodium Level 140 MMOL/L (136-145) Potassium Level 3.7 MMOL/L (3.5-5.1) Chloride Level 102 MMOL/L (98-107) Carbon Dioxide Level 22 MMOL/L (21-32) Anion Gap 16 mmol/L (5-15) Blood Urea Nitrogen 17 mg/dL (7-18) Creatinine 1.0 MG/DL (0.55-1.30) Estimat Glomerular Filtration Rate > 60 mL/min (>60) Glucose Level 132 MG/DL (74-106) Calcium Level 9.7 MG/DL (8.5-10.1) Total Bilirubin 1.0 MG/DL (0.2-1.0) Aspartate Amino Transf (AST/SGOT) 17 U/L (15-37) Alanine Aminotransferase (ALT/SGPT) 20 U/L (12-78) Alkaline Phosphatase 129 U/L (46-116) Total Protein 8.1 G/DL (6.4-8.2) Albumin 4.8 G/DL (3.4-5.0) Globulin 3.3 g/dL Albumin/Globulin Ratio 1.5 (1.0-2.7) Lipase 106 U/L (73-393) White Blood Count 15.3 K/UL (4.8-10.8) Red Blood Count 4.69 M/UL (4.70-6.10) Hemoglobin 13.7 G/DL (14.2-18.0) Hematocrit 37.9 % (42.0-52.0) Mean Corpuscular Volume 81 FL (80-99) Mean Corpuscular Hemoglobin 29.1 PG (27.0-31.0) Mean Corpuscular Hemoglobin Concent 36.0 G/DL (32.0-36.0) Red Cell Distribution Width 10.2 % (11.6-14.8) Platelet Count 271 K/UL (150-450) Mean Platelet Volume 5.3 FL (6.5-10.1) Neutrophils (%) (Auto) 84.5 % (45.0-75.0) Lymphocytes (%) (Auto) 10.9 % (20.0-45.0) Monocytes (%) (Auto) 4.2 % (1.0-10.0) Eosinophils (%) (Auto) 0.0 % (0.0-3.0) Basophils (%) (Auto) 0.4 % (0.0-2.0) Urine Color Pale yellow Urine Appearance Clear Urine pH 7 (4.5-8.0) Urine Specific [place] 1.005 (1.005-1.035) Urine Protein Negative (NEGATIVE) Urine Glucose (UA) Negative (NEGATIVE) Urine Ketones 3+ (NEGATIVE) Urine Blood Negative (NEGATIVE) Urine Nitrite Negative (NEGATIVE) Urine Bilirubin Negative (NEGATIVE) Urine Urobilinogen Normal MG/DL (0.0-1.0) Urine Leukocyte Esterase Negative (NEGATIVE) Last Vital Signs Date Time Temp Pulse Resp B/P (MAP) Pulse Ox O2 Delivery O2 Flow Rate FiO2 01/02/19 14:47 97.9 87 20 147/84 (105) 99 Room Air Status: improved Disposition: HOME, SELF-CARE Condition: Stable Scripts Ondansetron (Zofran) 4 Mg Tablet 4 MG ORAL Q6H PRN for Nausea & Vomiting, #30 TAB 0 Refills Prov: Rodolfo Saleem MD 01/02/19 Omeprazole (OMEPRAZOLE) 20 Mg Capsule. 20 MG ORAL DAILY, #30 CAP Prov: Rodolfo Saleem MD 01/02/19 Rodolfo Saleem MD Jan 02, 2019 15:17
[2019-01-02 15:23] LABS: HEMATOCRIT 45.4 % (42.0-52.0); HEMOGLOBIN 16.3 G/DL (14.2-18.0); MEAN CORPUSCULAR VOLUME 81 FL (80-99); PLATELET COUNT 349 K/UL (150-450); RED BLOOD COUNT 5.64 M/UL (4.70-6.10); RED CELL DISTRIBUTION WIDTH 10.3 % (11.6-14.8); WHITE BLOOD COUNT 17.4 K/UL (4.8-10.8)
[2019-01-02 15:24] LABS: BASOPHILS % (AUTO) 0.5 % (0.0-2.0); LYMPHOCYTES % (AUTO) 8.8 % (20.0-45.0); NEUTROPHILS % (AUTO) 87.7 % (45.0-75.0)
[2019-01-02 15:30] LABS: ANION GAP 16 mmol/L (5-15); BLOOD UREA NITROGEN 17 mg/dL (7-18); CALCIUM 9.7 MG/DL (8.5-10.1); CARBON DIOXIDE 22 MMOL/L (21-32); CHLORIDE 102 MMOL/L (98-107); POTASSIUM 3.7 MMOL/L (3.5-5.1); SODIUM 140 MMOL/L (136-145)
[2019-01-02 15:35] LABS: ALANINE AMINOTRANSFERASE 20 U/L (12-78); ALBUMIN 4.8 G/DL (3.4-5.0); ALBUMIN/GLOBULIN RATIO 1.5 (1.0-2.7); ALKALINE PHOSPHATASE 129 U/L (46-116); ASPARTATE AMINO TRANSFERASE 17 U/L (15-37)
[2019-01-02] MEDS ORDERED: LR 1000ml 1,000 ML IV SCH (16:30)
--- NOTE | 2019-01-02 16:37 | NUR ---
ED Nurse Note: Patient still complains of pain, Dr. Saleem aware and notified
[2019-01-02] MEDS ORDERED: ALPRAZolam 0.5mg tab ORAL ONE (17:00)
[2019-01-02 18:31] VITALS: BP 134/78
[2019-01-02 18:33] LABS: APPEARANCE,URINE CLEAR; BILIRUBIN, URINE NEGATIVE (NEGATIVE); COLOR,URINE PALE YELLOW; GLUCOSE, URINE (UA) NEGATIVE (NEGATIVE); KETONES,URINE 3+ (NEGATIVE); LEUKOCYTE ESTERASE ,URINE NEGATIVE (NEGATIVE); NITRITE,URINE NEGATIVE (NEGATIVE); PH,URINE 7 (4.5-8.0); PROTEIN,URINE NEGATIVE (NEGATIVE); UROBILINOGEN,URINE NORMAL MG/DL (0.0-1.0)
--- NOTE | 2019-01-02 18:35 | NUR ---
ED Nurse Note: Urine and blood sent down.
[2019-01-02 18:36] LABS: BASOPHILS % (AUTO) 0.4 % (0.0-2.0); HEMATOCRIT 37.9 % (42.0-52.0); HEMOGLOBIN 13.7 G/DL (14.2-18.0); LYMPHOCYTES % (AUTO) 10.9 % (20.0-45.0); MEAN CORPUSCULAR VOLUME 81 FL (80-99); MONOCYTES % (AUTO) 4.2 % (1.0-10.0); NEUTROPHILS % (AUTO) 84.5 % (45.0-75.0); PLATELET COUNT 271 K/UL (150-450); RED BLOOD COUNT 4.69 M/UL (4.70-6.10); RED CELL DISTRIBUTION WIDTH 10.2 % (11.6-14.8); WHITE BLOOD COUNT 15.3 K/UL (4.8-10.8)
[2019-01-02] MEDS ORDERED: OMEPRAZOLE20 M2 ORAL (18:52)
[2019-01-02] MEDS ORDERED: ZOFRAN4 MG ORAL (18:52)
[2019-01-02 19:20] VITALS: BP 140/72
--- NOTE | 2019-01-02 19:20 | NUR ---
ER DISCHARGE NOTE: Patient is cleared to be discharged per ERMD, pt is aox4, on room air, with stable vital signs. pt was given dc and prescription instructions, pt was able to verbalize understanding, pt id band and iv site removed without complications. pt is able to ambulate with steady gait. pt took all belongings.
== END 2019-01-02 19:21 | disposition home or self-care (01) ==
LOC: EMR 15:19
DX: G43.A0 Cyclical vomiting, in migraine, not intractable (principal); F41.9 Anxiety disorder, unspecified
CPT/HCPCS: 36415; 80053; 81003; 83690; 85025; 96361; 96374; 96375; 99284; J1630; S0028